=== PATIENT | male | born 1975 | race Caucasian/White ===

== ENCOUNTER 2019-12-11 15:41 | Emergency (ER) | payer OTHER ==
[~2019-12-11] VITALS: Ht 172.7 cm; Wt 83.9 kg
[~2019-12-11 15:41] MED LIST: PERCOCET 5/321 UDTAB PO
[2019-12-11] MEDS ORDERED: XARELTO20 MG (16:46)
[2019-12-11] MEDS ORDERED: WELLBUTRIN SR200 MG (16:46)
[2019-12-11] MEDS ORDERED: EFFEXOR XR150 MG (16:46)
[2019-12-11] MEDS ORDERED: NUCYNTA ER100 MG (16:47)
== END 2019-12-11 21:10 | disposition home or self-care (01) ==
LOC: ER 15:41
DX: F11.23 Opioid dependence with withdrawal (principal); R41.0 Disorientation, unspecified; T40.2X5A Adverse effect of other opioids, initial encounter; Y92.89 Other specified places as the place of occurrence of the external cause